=== PATIENT | female | born 1940 | race Caucasian/White ===

== ENCOUNTER 2020-10-16 15:14 | Inpatient (IN) ==
[2020-10-17] MEDS ORDERED: *HR* Dextrose 50 % in Water (Vial) 50 ML VIAL IVP PRN (20:37)
[2020-10-17] MEDS ORDERED: D5% in Water 1,000 ML IVC PRN (20:37)
[2020-10-17] MEDS ORDERED: Dextrose Gel 15 GM/37.5 ML TUBE PO PRN ×2 (20:37)
[2020-10-17] MEDS ORDERED: Torsemide 20 MG TABLET PO SCH (21:00)
[2020-10-17] MEDS ORDERED: Insulin DETEMIR 100 UNIT/ML per UNIT SUBQ ONE (21:00)
[2020-10-17] MEDS: Apixaban 5 MG TABLET PO SCH (22:37)
[2020-10-17] MEDS: *HR* OxyCODONE/APAP 5/325 TABLET PO PRN (22:44)
[2020-10-17] MEDS: carvediloL 25 MG TABLET PO SCH (22:47)
[2020-10-17] MEDS: Insulin LISPRO 300 UNITS/3 ML VIAL SUBQ SCH (22:56)
[2020-10-18 06:58] LABS: Basophils % 0.7 %; Eosinophils # 0.3 K/mcL (0.0-0.6); Eosinophils % 4.6 %; Hematocrit 26.1 % (35.3-44.9); Hemoglobin 8.5 g/dL (11.5-15.4); Immature Granulocytes % 1.7 % (0-4); Lymphocytes # 1.5 K/mcL (0.6-4.6); Mean Corpuscular HGB Conc 32.6 g/dL (31.6-35.5); Mean Corpuscular Hemoglobin 29.8 pg (28.0-33.3); Mean Corpuscular Volume 91.6 fL (83.0-100.0); Mean Platelet Volume 10.9 fL (9.4-12.4); Monocytes # 0.9 K/mcL (0.0-1.3); Monocytes % 15.9 %; Neutrophils # 2.7 K/mcL (1.6-8.9); Nucleated Red Blood Cells 0.6 /100 WBC (0); Platelet Count 198 K/mcL (140-400); Red Blood Count 2.85 M/mcL (3.82-4.97); Red Cell Distribution Width 17.1 % (11.5-14.5); Segmented Neutrophils % 50.1 %; White Blood Count 5.4 K/mcL (4.3-11.1)
[2020-10-18 07:32] LABS: Calcium 8.3 mg/dL (8.6-10.3); Potassium 4.2 mEq/L (3.5-5.1)
[2020-10-18] MEDS: Magnesium Oxide 400 MG TABLET PO SCH (09:30)
[2020-10-18] MEDS: Aspirin Enteric Coated 81 MG Tablet PO SCH (09:30)
[2020-10-18] MEDS: Insulin LISPRO 300 UNITS/3 ML VIAL SUBQ SCH ×3 (09:30→17:51)
[2020-10-18] MEDS: Apixaban 5 MG TABLET PO SCH ×2 (09:30→22:26)
[2020-10-18] MEDS: carvediloL 25 MG TABLET PO SCH ×2 (09:31→22:25)
[2020-10-18] MEDS: DilTIAZem CD (24hr) 120 MG CAP.ER.24H PO SCH (09:31)
[2020-10-18] MEDS: allopurinoL 100 MG TABLET PO SCH (09:31)
[2020-10-18] MEDS: Loratadine 10 MG TABLET PO SCH (09:31)
[2020-10-18] MEDS: Insulin DETEMIR 100 UNIT/ML X5UNITS SUBQ SCH ×2 (09:35→22:31)
[2020-10-18] MEDS: Torsemide 20 MG TABLET PO SCH ×2 (09:35→18:21)
[2020-10-18] MEDS: *HR* OxyCODONE/APAP 5/325 TABLET PO PRN ×3 (09:35→22:27)
[2020-10-18 13:39] LABS: Estimated Average Glucose 169 mg/dl; Hemoglobin A1C 7.5 %
[2020-10-19 06:18] LABS: Mean Corpuscular HGB Conc 32.1 g/dL (31.6-35.5); Mean Corpuscular Hemoglobin 29.6 pg (28.0-33.3); Mean Corpuscular Volume 92.1 fL (83.0-100.0); Mean Platelet Volume 10.6 fL (9.4-12.4); Platelet Count 228 K/mcL (140-400); Red Blood Count 3.04 M/mcL (3.82-4.97); Red Cell Distribution Width 17.5 % (11.5-14.5); White Blood Count 5.2 K/mcL (4.3-11.1)
[2020-10-19 06:47] LABS: Calcium 8.6 mg/dL (8.6-10.3); Magnesium 2.2 mg/dL (1.6-2.6); Potassium 4.5 mEq/L (3.5-5.1)
[2020-10-19] MEDS: *HR* OxyCODONE/APAP 5/325 TABLET PO PRN ×2 (06:49→20:31)
[2020-10-19] MEDS: Magnesium Oxide 400 MG TABLET PO SCH (09:22)
[2020-10-19] MEDS: Aspirin Enteric Coated 81 MG Tablet PO SCH (09:22)
[2020-10-19] MEDS: carvediloL 25 MG TABLET PO SCH ×2 (09:22→17:03)
[2020-10-19] MEDS: Loratadine 10 MG TABLET PO SCH (09:23)
[2020-10-19] MEDS: Apixaban 5 MG TABLET PO SCH ×2 (09:23→20:30)
[2020-10-19] MEDS: DilTIAZem CD (24hr) 120 MG CAP.ER.24H PO SCH (09:23)
[2020-10-19] MEDS: allopurinoL 100 MG TABLET PO SCH (09:23)
[2020-10-19] MEDS: Torsemide 20 MG TABLET PO SCH ×2 (09:28→17:30)
[2020-10-19] MEDS: Insulin LISPRO 300 UNITS/3 ML VIAL SUBQ SCH ×2 (09:28→17:04)
[2020-10-19] MEDS: Insulin DETEMIR 100 UNIT/ML X5UNITS SUBQ SCH ×2 (09:46→20:31)
[2020-10-20] MEDS: *HR* OxyCODONE/APAP 5/325 TABLET PO PRN ×2 (02:03→21:36)
[2020-10-20] MEDS: Insulin LISPRO 300 UNITS/3 ML VIAL SUBQ SCH ×3 (10:35→15:54)
[2020-10-20] MEDS: carvediloL 25 MG TABLET PO SCH ×2 (10:36→15:50)
[2020-10-20] MEDS: Loratadine 10 MG TABLET PO SCH (10:36)
[2020-10-20] MEDS: Aspirin Enteric Coated 81 MG Tablet PO SCH (10:36)
[2020-10-20] MEDS: Magnesium Oxide 400 MG TABLET PO SCH (10:36)
[2020-10-20] MEDS: allopurinoL 100 MG TABLET PO SCH (10:36)
[2020-10-20] MEDS: DilTIAZem CD (24hr) 120 MG CAP.ER.24H PO SCH (10:36)
[2020-10-20] MEDS: Apixaban 5 MG TABLET PO SCH ×2 (10:37→21:36)
[2020-10-20] MEDS: Torsemide 20 MG TABLET PO SCH ×2 (10:39→15:50)
[2020-10-20] MEDS: Insulin DETEMIR 100 UNIT/ML X5UNITS SUBQ SCH ×2 (10:40→21:36)
[2020-10-21] MEDS: *HR* OxyCODONE/APAP 5/325 TABLET PO PRN ×3 (02:48→21:12)
[2020-10-21] MEDS: Apixaban 5 MG TABLET PO SCH ×2 (08:55→21:12)
[2020-10-21] MEDS: allopurinoL 100 MG TABLET PO SCH (08:55)
[2020-10-21] MEDS: DilTIAZem CD (24hr) 120 MG CAP.ER.24H PO SCH (08:55)
[2020-10-21] MEDS: carvediloL 25 MG TABLET PO SCH ×2 (08:55→17:08)
[2020-10-21] MEDS: Loratadine 10 MG TABLET PO SCH (08:55)
[2020-10-21] MEDS: Aspirin Enteric Coated 81 MG Tablet PO SCH (08:55)
[2020-10-21] MEDS: Magnesium Oxide 400 MG TABLET PO SCH (08:55)
[2020-10-21] MEDS: Insulin LISPRO 300 UNITS/3 ML VIAL SUBQ SCH ×3 (08:58→17:09)
[2020-10-21] MEDS: Torsemide 20 MG TABLET PO SCH ×2 (11:43→17:19)
[2020-10-21] MEDS: Insulin DETEMIR 100 UNIT/ML X5UNITS SUBQ SCH ×2 (11:43→21:13)
[2020-10-21] MEDS ORDERED: Pantoprazole 40 MG VIAL IVP ONE (22:37)
[2020-10-21] MEDS ORDERED: Ondansetron 4 MG/2 ML VIAL IVP ONE (22:38)
[2020-10-21] MEDS ORDERED: Ondansetron 4 MG/2 ML VIAL IVP PRN (22:40)
[2020-10-22 05:03] LABS: Basophils # 0.1 K/mcL (0.0-0.2); Basophils % 0.7 %; Eosinophils # 0.3 K/mcL (0.0-0.6); Eosinophils % 3.6 %; Hematocrit 27.8 % (35.3-44.9); Immature Granulocytes % 0.7 % (0-4); Lymphocytes # 1.4 K/mcL (0.6-4.6); Lymphocytes % 20.8 %; Mean Corpuscular HGB Conc 32.4 g/dL (31.6-35.5); Mean Corpuscular Hemoglobin 29.6 pg (28.0-33.3); Mean Corpuscular Volume 91.4 fL (83.0-100.0); Mean Platelet Volume 10.1 fL (9.4-12.4); Monocytes # 0.9 K/mcL (0.0-1.3); Monocytes % 13.3 %; Neutrophils # 4.2 K/mcL (1.6-8.9); Platelet Count 213 K/mcL (140-400); Red Blood Count 3.04 M/mcL (3.82-4.97); Red Cell Distribution Width 17.6 % (11.5-14.5); Segmented Neutrophils % 60.9 %; White Blood Count 6.9 K/mcL (4.3-11.1)
[2020-10-22] MEDS: Torsemide 20 MG TABLET PO SCH ×2 (08:00→17:20)
[2020-10-22] MEDS: DilTIAZem CD (24hr) 120 MG CAP.ER.24H PO SCH (09:06)
[2020-10-22] MEDS: Magnesium Oxide 400 MG TABLET PO SCH (09:06)
[2020-10-22] MEDS: allopurinoL 100 MG TABLET PO SCH (09:06)
[2020-10-22] MEDS: *HR* OxyCODONE/APAP 5/325 TABLET PO PRN ×3 (09:06→21:37)
[2020-10-22] MEDS: carvediloL 25 MG TABLET PO SCH ×2 (09:06→16:45)
[2020-10-22] MEDS: Aspirin Enteric Coated 81 MG Tablet PO SCH (09:06)
[2020-10-22] MEDS: Loratadine 10 MG TABLET PO SCH (09:07)
[2020-10-22] MEDS: Apixaban 5 MG TABLET PO SCH ×2 (09:07→21:37)
[2020-10-22] MEDS: Insulin DETEMIR 100 UNIT/ML X5UNITS SUBQ SCH ×2 (09:09→21:41)
[2020-10-22] MEDS: Insulin LISPRO 300 UNITS/3 ML VIAL SUBQ SCH ×3 (09:09→21:15)
[2020-10-22 12:33] LABS: Calcium 8.7 mg/dL (8.6-10.3); Potassium 4.4 mEq/L (3.5-5.1)
[2020-10-23] MEDS: carvediloL 25 MG TABLET PO SCH ×2 (08:34→17:29)
[2020-10-23] MEDS: DilTIAZem CD (24hr) 120 MG CAP.ER.24H PO SCH (08:34)
[2020-10-23] MEDS: Magnesium Oxide 400 MG TABLET PO SCH (08:35)
[2020-10-23] MEDS: Apixaban 5 MG TABLET PO SCH ×2 (08:35→20:20)
[2020-10-23] MEDS: Loratadine 10 MG TABLET PO SCH (08:35)
[2020-10-23] MEDS: allopurinoL 100 MG TABLET PO SCH (08:35)
[2020-10-23] MEDS: Aspirin Enteric Coated 81 MG Tablet PO SCH (08:35)
[2020-10-23] MEDS: Insulin LISPRO 300 UNITS/3 ML VIAL SUBQ SCH ×3 (08:36→17:30)
[2020-10-23] MEDS: Insulin DETEMIR 100 UNIT/ML X5UNITS SUBQ SCH ×2 (08:37→20:21)
[2020-10-23] MEDS: Torsemide 20 MG TABLET PO SCH ×2 (08:45→17:29)
[2020-10-23] MEDS: *HR* OxyCODONE/APAP 5/325 TABLET PO PRN (20:20)
[2020-10-24] MEDS: Insulin LISPRO 300 UNITS/3 ML VIAL SUBQ SCH ×3 (08:19→18:46)
[2020-10-24] MEDS: DilTIAZem CD (24hr) 120 MG CAP.ER.24H PO SCH (08:20)
[2020-10-24] MEDS: Loratadine 10 MG TABLET PO SCH (08:20)
[2020-10-24] MEDS: Apixaban 5 MG TABLET PO SCH ×2 (08:20→21:38)
[2020-10-24] MEDS: Insulin DETEMIR 100 UNIT/ML X5UNITS SUBQ SCH ×2 (08:20→21:41)
[2020-10-24] MEDS: Aspirin Enteric Coated 81 MG Tablet PO SCH (08:20)
[2020-10-24] MEDS: carvediloL 25 MG TABLET PO SCH ×2 (08:20→17:18)
[2020-10-24] MEDS: Magnesium Oxide 400 MG TABLET PO SCH (08:20)
[2020-10-24] MEDS: allopurinoL 100 MG TABLET PO SCH (08:20)
[2020-10-24] MEDS: Torsemide 20 MG TABLET PO SCH ×2 (08:29→18:46)
[2020-10-24] MEDS: *HR* OxyCODONE/APAP 5/325 TABLET PO PRN ×2 (10:11→21:39)
[2020-10-25] MEDS: DilTIAZem CD (24hr) 120 MG CAP.ER.24H PO SCH (10:06)
[2020-10-25] MEDS: Apixaban 5 MG TABLET PO SCH ×2 (10:06→21:34)
[2020-10-25] MEDS: Aspirin Enteric Coated 81 MG Tablet PO SCH (10:06)
[2020-10-25] MEDS: carvediloL 25 MG TABLET PO SCH ×2 (10:06→16:58)
[2020-10-25] MEDS: allopurinoL 100 MG TABLET PO SCH (10:06)
[2020-10-25] MEDS: Magnesium Oxide 400 MG TABLET PO SCH (10:06)
[2020-10-25] MEDS: Insulin LISPRO 300 UNITS/3 ML VIAL SUBQ SCH ×3 (10:06→16:58)
[2020-10-25] MEDS: Loratadine 10 MG TABLET PO SCH (10:06)
[2020-10-25] MEDS: Insulin DETEMIR 100 UNIT/ML X5UNITS SUBQ SCH ×2 (10:07→21:35)
[2020-10-25] MEDS: Torsemide 20 MG TABLET PO SCH ×2 (10:21→16:57)
[2020-10-25] MEDS: *HR* OxyCODONE/APAP 5/325 TABLET PO PRN ×2 (14:00→21:35)
[2020-10-26] MEDS: Insulin LISPRO 300 UNITS/3 ML VIAL SUBQ SCH ×3 (08:29→16:47)
[2020-10-26] MEDS: Torsemide 20 MG TABLET PO SCH ×2 (08:30→16:48)
[2020-10-26] MEDS: Insulin DETEMIR 100 UNIT/ML X5UNITS SUBQ SCH ×2 (08:30→22:36)
[2020-10-26] MEDS: DilTIAZem CD (24hr) 120 MG CAP.ER.24H PO SCH (08:31)
[2020-10-26] MEDS: Magnesium Oxide 400 MG TABLET PO SCH (08:32)
[2020-10-26] MEDS: Loratadine 10 MG TABLET PO SCH (08:32)
[2020-10-26] MEDS: allopurinoL 100 MG TABLET PO SCH (08:32)
[2020-10-26] MEDS: Aspirin Enteric Coated 81 MG Tablet PO SCH (08:32)
[2020-10-26] MEDS: Apixaban 5 MG TABLET PO SCH ×2 (08:32→22:35)
[2020-10-26] MEDS: carvediloL 25 MG TABLET PO SCH ×2 (08:33→16:49)
[2020-10-26] MEDS: *HR* OxyCODONE/APAP 5/325 TABLET PO PRN ×2 (10:37→22:35)
[2020-10-27] MEDS: *HR* OxyCODONE/APAP 5/325 TABLET PO PRN ×2 (06:45→20:37)
[2020-10-27] MEDS: Insulin LISPRO 300 UNITS/3 ML VIAL SUBQ SCH ×3 (08:38→17:23)
[2020-10-27] MEDS: Apixaban 5 MG TABLET PO SCH ×2 (08:41→20:36)
[2020-10-27] MEDS: Magnesium Oxide 400 MG TABLET PO SCH (08:41)
[2020-10-27] MEDS: Loratadine 10 MG TABLET PO SCH (08:41)
[2020-10-27] MEDS: DilTIAZem CD (24hr) 120 MG CAP.ER.24H PO SCH (08:41)
[2020-10-27] MEDS: allopurinoL 100 MG TABLET PO SCH (08:41)
[2020-10-27] MEDS: carvediloL 25 MG TABLET PO SCH ×2 (08:41→16:16)
[2020-10-27] MEDS: Aspirin Enteric Coated 81 MG Tablet PO SCH (08:42)
[2020-10-27] MEDS: Torsemide 20 MG TABLET PO SCH ×2 (08:45→17:30)
[2020-10-27] MEDS: Insulin DETEMIR 100 UNIT/ML X5UNITS SUBQ SCH ×2 (08:46→20:38)
[2020-10-28 04:52] LABS: Basophils # 0.1 K/mcL (0.0-0.2); Basophils % 0.9 %; Eosinophils # 0.2 K/mcL (0.0-0.6); Eosinophils % 4.5 %; Hematocrit 30.8 % (35.3-44.9); Hemoglobin 9.7 g/dL (11.5-15.4); Immature Granulocytes % 0.4 % (0-4); Lymphocytes # 1.4 K/mcL (0.6-4.6); Lymphocytes % 26.6 %; Mean Corpuscular HGB Conc 31.5 g/dL (31.6-35.5); Mean Corpuscular Hemoglobin 29.6 pg (28.0-33.3); Mean Corpuscular Volume 93.9 fL (83.0-100.0); Mean Platelet Volume 11.1 fL (9.4-12.4); Monocytes # 0.5 K/mcL (0.0-1.3); Monocytes % 10.1 %; Neutrophils # 3.1 K/mcL (1.6-8.9); Platelet Count 174 K/mcL (140-400); Red Blood Count 3.28 M/mcL (3.82-4.97); Red Cell Distribution Width 17.7 % (11.5-14.5); Segmented Neutrophils % 57.5 %; White Blood Count 5.3 K/mcL (4.3-11.1)
[2020-10-28 05:10] LABS: Calcium 8.8 mg/dL (8.6-10.3); Potassium 5.6 mEq/L (3.5-5.1)
[2020-10-28] MEDS: Insulin LISPRO 300 UNITS/3 ML VIAL SUBQ SCH ×3 (09:50→17:49)
[2020-10-28] MEDS: allopurinoL 100 MG TABLET PO SCH (09:51)
[2020-10-28] MEDS: carvediloL 25 MG TABLET PO SCH ×2 (09:51→17:50)
[2020-10-28] MEDS: Aspirin Enteric Coated 81 MG Tablet PO SCH (09:51)
[2020-10-28] MEDS: Apixaban 5 MG TABLET PO SCH ×2 (09:51→21:04)
[2020-10-28] MEDS: DilTIAZem CD (24hr) 120 MG CAP.ER.24H PO SCH (09:51)
[2020-10-28] MEDS: Magnesium Oxide 400 MG TABLET PO SCH (09:52)
[2020-10-28] MEDS: Loratadine 10 MG TABLET PO SCH (09:52)
[2020-10-28] MEDS: Torsemide 20 MG TABLET PO SCH ×2 (09:52→17:52)
[2020-10-28] MEDS: *HR* OxyCODONE/APAP 5/325 TABLET PO PRN ×3 (09:56→22:09)
[2020-10-28] MEDS: Insulin DETEMIR 100 UNIT/ML X5UNITS SUBQ SCH ×2 (09:56→22:03)
[2020-10-29] MEDS: *HR* OxyCODONE/APAP 5/325 TABLET PO PRN (05:31)
[2020-10-29 07:11] VITALS: BP 116/67; PULSE 65; RESP 16; TEMP 98.4; O2SAT 98
[2020-10-29] MEDS: Aspirin Enteric Coated 81 MG Tablet PO SCH (09:07)
[2020-10-29] MEDS: DilTIAZem CD (24hr) 120 MG CAP.ER.24H PO SCH (09:07)
[2020-10-29] MEDS: Magnesium Oxide 400 MG TABLET PO SCH (09:07)
[2020-10-29] MEDS: Loratadine 10 MG TABLET PO SCH (09:07)
[2020-10-29] MEDS: allopurinoL 100 MG TABLET PO SCH (09:07)
[2020-10-29] MEDS: carvediloL 25 MG TABLET PO SCH (09:08)
[2020-10-29] MEDS: Apixaban 5 MG TABLET PO SCH (09:08)
[2020-10-29] MEDS: Torsemide 20 MG TABLET PO SCH (09:19)
[2020-10-29] MEDS: Insulin DETEMIR 100 UNIT/ML X5UNITS SUBQ SCH (09:20)
[2020-10-29] MEDS: Insulin LISPRO 300 UNITS/3 ML VIAL SUBQ SCH ×2 (09:20→12:23)
== END 2020-10-29 14:00 | disposition home health service (06) | DRG 560 ==
LOC: INPGRE 10-17 18:45
PROVIDERS: ADMIT Family Medicine; ATTEND Family Medicine